=== PATIENT | female | born 1960 | race Caucasian/White ===

== ENCOUNTER 2017-12-28 13:51 | Emergency (ER) | payer OTHER ==
[2017-12-28 14:06] VITALS: BP 138/89; PULSE 56; RESP 16; TEMP 98.1; O2SAT 98
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
== END 2017-12-28 14:56 | disposition home or self-care (01) ==
LOC: C.ER 13:51
DX: S30.0XXA Contusion of lower back and pelvis, initial encounter (principal); V49.49XA Driver injured in collision with other motor vehicles in traffic accident, initial encounter